=== PATIENT | female | born 1945 | race Caucasian/White ===

== ENCOUNTER 2017-01-13 09:07 | Inpatient (IN) | payer BC, OTHER ==
[~2017-01-13] VITALS: Ht 162.6 cm; Wt 58.8 kg
[2017-01-13] MEDS ORDERED: ONDANSETRON 4 MG INJ IV STA (09:51)
[2017-01-13] MEDS ORDERED: BELLADONNA/PHENOBARBITAL TAB PO STA (09:51)
[2017-01-13] MEDS ORDERED: LIDOCAINE/MYLANTA 40 ML BTL PO STA (09:51)
[2017-01-13] MEDS ORDERED: SOD CHLORIDE 0.9% 1,000 ML IV STA (09:51)
[2017-01-13] MEDS ORDERED: morphine 4 MG/ML VIAL IV STA (09:51)
[2017-01-13] MEDS ORDERED: RALO60TA12 PO (09:59)
[2017-01-13 10:30] LABS: BASOPHILS % 0.1 % (0.0-2.0); HEMATOCRIT 42.6 % (37.0-47.0); HEMOGLOBIN 14.2 g/dl (12.0-16.0); LYMPHOCYTES # 0.7 10^3/ul (0.8-2.9); LYMPHOCYTES % 5.9 % (15.0-51.0); MEAN CORPUSCULAR HEMOGLOBIN 30.7 pg (29.0-33.0); MEAN CORPUSCULAR HGB CONC 33.3 g/dl (32.0-37.0); MEAN PLATELET VOLUME 9.7 fl (7.4-10.4); MONOCYTE # 0.6 10^3/ul (0.3-0.9); MONOCYTES % 4.5 % (0.0-11.0); NEUTROPHIL # 10.9 10^3/ul (1.6-7.5); NEUTROPHILS % 89.3 % (39.0-77.0); PLATELET COUNT 153 10^3/UL (140-415); RED BLOOD COUNT 4.63 10^6/ul (4.20-5.40); RED CELL DISTRIBUTION WIDTH 12.5 % (11.5-14.5); WHITE BLOOD COUNT 12.2 10^3/ul (4.8-10.8)
[2017-01-13 10:36] LABS: ADD UMIC YES; UR ASCORBIC ACID NEGATIVE (NEGATIVE); UR BILIRUBIN (Dip) NEGATIVE (NEGATIVE); UR BLOOD (Dip) 2+ mg/dL (NEGATIVE); UR CLARITY CLEAR (CLEAR); UR COLOR YELLOW (YELLOW); UR GLUCOSE (Dip) NEGATIVE (NEGATIVE); UR KETONES (Dip) 1+ mg/dL (NEGATIVE); UR LEUKOCYTE ESTERASE (Dip) TRACE Leu/ul (NEGATIVE); UR MUCUS MANY /HPF (NONE SEEN); UR NITRITE (Dip) NEGATIVE (NEGATIVE); UR RBC 16 /HPF (0-5); UR SPECIFIC GRAVITY (Dip) 1.026 (1.003-1.030); UR TOTAL PROTEIN (Dip) 1+ mg/dl (NEGATIVE); UR UROBILINOGEN (Dip) 1+ mg/dL (NEGATIVE)
--- NOTE | 2017-01-13 10:51 | RADRPT ---
PROCEDURE: Right Upper Quadrant Ultrasound. CLINICAL INDICATION: Abdominal Pain TECHNIQUE: Multiple real-time images were acquired of the patient's right upper quadrant abdomen a nd retroperitoneum utilizing a high resolution transducer. COMPARISON: None FINDINGS: The liver measures 13.2 cm, and demonstrates increased echogenicity. The main portal vein is patent with proper directional flow. There is no intrahepatic biliary ductal dilatation. The extrahepatic c ommon bile duct measures 6 mm. There is cholelithiasis. There is mild nonspecific gallbladder wall thickening to 4 mm. There is no pericholecystic fluid. The visualized pancreas is unremarkable. The right kidney measures 10.9 cm and demonstrates normal echotexture. There is no right renal calcu hannah or hydronephrosis. The visualized abdominal aorta and IVC are grossly unremarkable. IMPRESSION: Cholelithiasis as well as gallbladder wall thickening and edema to 4 mm suggestive of acute cholecys titis in the appropriate clinical setting. The CBD is within normal limits and 6 mm. Mild to moderate fatty infiltration of the liver. RPTAT: EE Physician Jun Date Time Electronically viewed and signed by Physician Jun on 01/13/2017 10:51 /
[2017-01-13 11:05] LABS: INR 0.89; PT RATIO 0.9
[2017-01-13 11:08] LABS: ALANINE AMINOTRANSFERASE 65 IU/L (13-69); ALBUMIN/GLOBULIN RATIO 1.61; ALKALINE PHOSPHATASE 107 IU/L (42-121); ANION GAP 19 (8-16); BILIRUBIN,INDIRECT 0.7 mg/dl (0-1.1); BILIRUBIN,TOTAL 0.7 mg/dl (0.2-1.3); BLOOD UREA NITROGEN 10 mg/dl (7-20); CARBON DIOXIDE 28 mmol/L (21-31); CHLORIDE 100 mmol/L (97-110); CREATININE 0.53 mg/dl (0.44-1.00); GLUCOSE 152 mg/dl (70-220); SODIUM 143 mmol/L (135-144); TOTAL PROTEIN 8.1 g/dl (6.1-8.1)
[2017-01-13 11:12] LABS: ASPARTATE AMINO TRANSFERASE 54 IU/L (15-46)
[2017-01-13 11:21] LABS: TROPONIN-I < 0.012 ng/ml (0.00-0.12)
--- NOTE | 2017-01-13 11:53 | RADRPT ---
PROCEDURE: XR Chest. CLINICAL INDICATION: Abdominal pain. TECHNIQUE: Single frontal view. COMPARISON: None. FINDINGS: The lungs are clear. The heart size is normal. There is calcification in the aorta consistent with atherosclerosis. There is no pleural effusion. There is no pneumothorax. IMPRESSION: 1. Atherosclerosis. 2. Otherwise unremarkable chest radiograph. RPTAT: QQ .Luis M Wilder MD, MD Date Time Electronically viewed and signed by .Luis M Wilder MD, MD on 01/13/2017 11:53 .R/
--- NOTE | 2017-01-13 12:58 | ERD ---
ER Documentation Chief Complaint Chief Complaint ruq pain w n/v/d HPI 8-year-old woman brought in by family member for constant right upper quadrant abdominal pain beginning last night. She has had nausea since last night with a couple episodes of clear nonbloody nonbilious emesis as well as watery stools. She has had no fevers or chills, no chest pain or shortness of breath, no headache or blurry vision. ROS All systems reviewed and are negative except as per history of present illness. Medications Home Meds Reported Medications Raloxifene Hcl* (Evista*) 60 Mg Tablet, 60 MG PO DAILY, TAB 01/13/17 Allergies Allergies: Coded Allergies: No Known Allergy (Unverified , 01/13/17) PMhx/Soc None Medical and Surgical Hx: pt denies Medical Hx, pt denies Surgical Hx History of Surgery: No Anesthesia Reaction: No Hx Neurological Disorder: No Hx Respiratory Disorders: No Hx Cardiac Disorders: No Hx Psychiatric Problems: No Hx Miscellaneous Medical Probl: No Hx Alcohol Use: No Hx Substance Use: No Hx Tobacco Use: No Smoking Status: Never smoker FmHx Family History: No diabetes Physical Exam Vitals Vital Signs Date Time Temp Pulse Resp B/P Pulse Ox O2 Delivery O2 Flow Rate FiO2 01/13/17 12:35 84 18 133/70 96 Room Air 01/13/17 09:12 98.8 80 20 134/70 98 Physical Exam GENERAL: Well-developed, well-nourished, well-hydrated, in no apparent distress , looks nontoxic in appearance HEENT: Moist mucous membranes, pink conjunctiva, no cervical spine tenderness or step-off deformities, no goiter, no jaundice or icterus, extraocular movements intact without pain. No submandibular induration, and no pharyngeal erythema NEURO: Alert and oriented 3, cranial nerves II through XII intact bilaterally, pupils equal round reactive to light, no focal deficits or facial asymmetry, sensation intact distally Strength 5/5 in upper and lower extremities bilaterally CARDIAC: Regular rate and rhythm, no murmurs rubs or gallops LUNGS: Clear bilaterally no wheezing crackles or stridor ABDOMEN: Positive Nuno sign, no rebound, no rigidity, voluntary guarding SKIN: Warm and dry to touch, no abrasions, contusions, or hematomas, no lacerations, no ecchymosis, no target lesions, and without ulcers EXTREMITIES: No clubbing cyanosis or edema, calves are bilaterally symmetrical, no Homans sign, no popliteal cord sign. Distal pulses equal and bilateral PSYCH: Normal affect without agitation or irritability Result Diagram: 01/13/17 1020 01/13/17 1020 Results 24 hrs Laboratory Tests Test 01/13/17 09:51 01/13/17 10:20 Prothrombin Time 12.0Sec Prothrombin Time Ratio 0.9 INR International Normalized Ratio 0.89 White Blood Count 12.210^3/ul Red Blood Count 4.6310^6/ul Hemoglobin 14.2g/dl Hematocrit 42.6% Mean Corpuscular Volume 92.0fl Mean Corpuscular Hemoglobin 30.7pg Mean Corpuscular Hemoglobin Concent 33.3g/dl Red Cell Distribution Width 12.5% Platelet Count 66438^3/UL Mean Platelet Volume 9.7fl Neutrophils % 89.3% Lymphocytes % 5.9% Monocytes % 4.5% Eosinophils % 0.0% Basophils % 0.1% Nucleated Red Blood Cells % 0.0/100WBC Neutrophils # 10.910^3/ul Lymphocytes # 0.710^3/ul Monocytes # 0.610^3/ul Eosinophils # 0.010^3/ul Basophils # 0.010^3/ul Nucleated Red Blood Cells # 0.010^3/ul Urine Color YELLOW Urine Clarity CLEAR Urine pH 5.0 Urine Specific [place] 1.026 Urine Ketones 1+mg/dL Urine Nitrite NEGATIVEmg/dL Urine Bilirubin NEGATIVEmg/dL Urine Urobilinogen 1+mg/dL Urine Leukocyte Esterase TRACELeu/ul Urine Microscopic RBC 16/HPF Urine Microscopic WBC 6/HPF Urine Mucus MANY/HPF Urine Hemoglobin 2+mg/dL Urine Glucose NEGATIVEmg/dL Urine Total Protein 1+mg/dl Sodium Level 143mmol/L Potassium Level 4.0mmol/L Chloride Level 100mmol/L Carbon Dioxide Level 28mmol/L Anion Gap 19 Blood Urea Nitrogen 10mg/dl Creatinine 0.53mg/dl Glucose Level 152mg/dl Calcium Level 10.0mg/dl Total Bilirubin 0.7mg/dl Direct Bilirubin 0.00mg/dl Indirect Bilirubin 0.7mg/dl Aspartate Amino Transf (AST/SGOT) 54IU/L Alanine Aminotransferase (ALT/SGPT) 65IU/L Alkaline Phosphatase 107IU/L Troponin I < 0.012ng/ml Total Protein 8.1g/dl Albumin 5.0g/dl Globulin 3.10g/dl Albumin/Globulin Ratio 1.61 Lipase 71U/L Current Medications Medications (Trade) Dose Ordered Sig/Jaye Route PRN Reason Start Time Stop Time Status Last Admin Dose Admin Sodium Chloride (NS) 1,000 ml @ 1,000 mls/hr Q1H STAT IV 01/13/17 09:51 01/13/17 10:50 DC 01/13/17 10:03 Morphine Sulfate (morphine) 4 mg ONCE STAT IV 01/13/17 09:51 01/13/17 09:52 DC Ondansetron HCl (Zofran Inj) 4 mg ONCE STAT IV 01/13/17 09:51 01/13/17 09:52 DC 01/13/17 10:03 Miscellaneous Medication (Gi Cocktail (2)) 40 ml ONCE STAT PO 01/13/17 09:51 01/13/17 09:52 DC 01/13/17 09:51 Belladonna/ Phenobarbital () 2 tab ONCE STAT PO 01/13/17 09:51 01/13/17 09:52 DC 01/13/17 09:51 Procedures/MDM IV line was established patient was placed on front desk monitor rhythm strip revealed a sinus rhythm at about 80 bpm with upright P and T waves. Patient was afebrile EKG performed, read by me: 80 bpm, normal sinus rhythm, normal axis, no acute ST segment changes, narrow QRS complex, with good R-wave progression in precordial leads. I administered 1 L normal saline intravenously, morphine 4 mg IV, Zofran 4 mg IV , GI cocktail 30 cc p.o. with improvement in pain. CBC and electrolytes are normal, liver function tests were normal, troponin was negative. Urine analysis was equivocal but she has no genitourinary symptoms, antibiotics deferred for the time being. Ultrasound revealed gallbladder wall thickening concerning for acute cholecystitis, CBD within normal limits. Please refer to radiologist dictation for full report. Patient will be admitted to [facility] for continued medical management and surgical consultation. I spoke to Dr. Garber surgeon communication consultant regarding the patient's presentation, symptomatology, ultrasound findings. Departure Diagnosis: Primary Impression: Acute cholecystitis Condition: ISABELLA Andersen MD Jan 13, 2017 12:58
[2017-01-13] MEDS ORDERED: ACETAMINOPHEN 650 MG SUPP PR PRN (13:30)
[2017-01-13] MEDS ORDERED: MAGNESIUM HYDROXIDE 30ML CUP PO PRN (13:30)
[2017-01-13] MEDS ORDERED: ACETAMINOPHEN 325 MG TAB PO PRN (13:30)
[2017-01-13] MEDS ORDERED: ONDANSETRON 4 MG INJ IV PRN (13:30)
[2017-01-13] MEDS ORDERED: morphine 2 MG INJ IV PRN (13:30)
[2017-01-13] MEDS ORDERED: NACL 0.9% 3 ML SYG IV SCH (13:30)
[2017-01-13] MEDS ORDERED: HYDROCODONE/APAP (5/325) TAB PO PRN ×2 (13:30)
[2017-01-13] MEDS ORDERED: BISACODYL 10 MG SUPP PR PRN (13:30)
[2017-01-13] MEDS ORDERED: DOCUSATE SODIUM 100 MG CAP PO PRN (13:30)
[2017-01-13 14:06] VITALS: TEMP 99
--- NOTE | 2017-01-13 14:13 | HP ---
Date/Time of Note Date/Time of Note DATE: 01/13/17 TIME: 14:09 Assessment/Plan VTE Prophylaxis VTE Prophylaxis Intervention: SCD's Assessment/Plan Chief Complaint/Hosp Course Assessment and plan 1. Cholelithiasis with cholecystitis. Surgeon consulted. Continuing IV hydration. N.p.o. for now. Provide with analgesics as needed. 2. Leukocytosis likely secondary reactive to #1. Afebrile at present. Will monitor for now. Provide with anti-diuretics as needed. 3. Reported history of diabetes. Follow-up on A1c. Will provide insulin as needed. Admission process time greater than 40 minutes Discussed plan of care with Dr. Flores Problems: HPI/ROS Admit Date/Time Admit Date/Time Hx of Present Illness This Is a 71-year-old female with no reported past medical history who came to [facility] due to reports of abdominal pain. According to the patient she had been having abdominal pain for 2 weeks duration. She reports it was intermittent 1 right upper abdominal quadrant. She did have some nausea vomiting associated with it. She reports that 3 days prior to this admission she started to have associated diarrhea and her pain progressively got worse. As such she went to [facility] for further evaluation. Upon examination she did have gallbladder ultrasound done that did show findings consistent with cholelithiasis as well as cholecystitis. On blood work she did have leukocytosis 12.2 on white blood cell count. BMP was otherwise unremarkable. Afebrile at present. We will evaluate her for the aformentiond issues. ROS 12 point review of systems obtained and entirely negative except as mentioned in the history of present illness PMH/Family/Social Past Medical History Medical History: no pertinent history Family History Significant Family History: no pertinent family hx Social History Alcohol Use: none Smoking Status: Never smoker Drug Use: none Exam/Review of Systems Vital Signs Vitals Vital Signs Date Time Temp Pulse Resp B/P Pulse Ox O2 Delivery O2 Flow Rate FiO2 01/13/17 14:06 99.0 01/13/17 12:35 84 18 133/70 96 Room Air Exam Constitutional: alert, oriented Psych: nl mood/affect Head: normocephalic Eyes: nl conjunctiva Respiratory: clear to auscultation, normal air movement Cardiovascular: regular rate and rhythm Gastrointestinal: non-tender, soft Musculoskeletal: nl extremities to inspection Neurological: [employer]ER II-XII intact, nl mental status, nl speech Labs Result Diagram: 01/13/17 1020 01/13/17 1020 Medications Medications Current Medications Sodium Chloride (NS) 1,000 ml @ 80 mls/hr [id number] IV ; Start 01/13/17 at 13:21 Ondansetron HCl (Zofran Inj) 4 mg Q6H PRN IV NAUSEA AND/OR VOMITING; Start 01/13/17 at 13:30 Acetaminophen (Tylenol Tab) 650 mg Q6H PRN PO PAIN LEVEL 1-3 OR FEVER; Start 01/13/17 at 13:30 Acetaminophen (Tylenol Supp) 650 mg Q6H PRN [place] PAIN LEVEL 1-3 OR FEVER; Start 01/13/17 at 13:30 Acetaminophen/ Hydrocodone Bitart ([place] (5/325)) 1 tab Q6H PRN PO MODERATE PAIN LEVEL 4-6; Start 01/13/17 at 13:30 Acetaminophen/ Hydrocodone Bitart ([place] (5/325)) 2 tab Q6H PRN PO SEVERE PAIN LEVEL 7-10; Start 01/13/17 at 13:30 Morphine Sulfate (morphine) 2 mg Q4H PRN IV SEVERE PAIN LEVEL 7-10; Start 01/13 at 13:30 Docusate Sodium (Colace) 100 mg Q12H PRN PO CONSTIPATION; Start 01/13/17 at 13: 30 Magnesium Hydroxide (Milk Of Mag) 30 ml DAILY PRN PO CONSTIPATION; Start at 13:30 Bisacodyl (Dulcolax Supp) 10 mg DAILY PRN [place] CONSTIPATION; Start 01/13/17 at 13 :30 Pantoprazole (Protonix Iv) 40 mg DAILY@06 IV ; Start 01/14/17 at 06:00 SHOSHANA YAÑEZ Jan 13, 2017 14:13
[2017-01-13] MEDS ORDERED: GLIP5TAB13 PO (14:36)
[2017-01-13 15:17] VITALS: Ht 162.6 cm; Wt 58.8 kg
[2017-01-13 15:21] VITALS: BP 131/61; RESP 18
--- NOTE | 2017-01-13 17:44 | CONS ---
Date/Time of Note Date/Time of Note DATE: 01/13/17 TIME: 14:44 Assessment/Plan Assessment/Plan Additional Assessment/Plan [facility] INPATIENT CONSULTATION NOTE DATE OF SERVICE: 01/13/2017 PLACE OF SERVICE: [facility], emergency department ASSESSMENT AND PLAN: A very-pleasant 71-year-old lady seemingly otherwise healthy who presented to the emergency department to [facility] with abdominal pain which could be due to symptomatic biliary colic. The appearance of the ultrasound suggests lack of significant inflammation of the gallbladder, but there is distention as well as significant amount of cholelithiasis. Her physical exam and her history do agree with likely gallbladder etiology behind her pain. I recommended extra workup in the form of HIDA scan prior to exposing the patient to the risk of surgery. If the HIDA scan is positive, the patient can certainly benefit from laparoscopic, possible open cholecystectomy. I plan on consenting the patient after this result is available. Explained to the patient (no family present) and answered all questions. Patient appeared to understand and agreed with plans. With above assessment, I've recommended the followin. Agree with admission to the hospital 2. HIDA scan 3. Laparoscopic cholecystectomy after above if HIDA scan is definitive Thank you very much for having me involved in the care of this very pleasant patient and wonderful family. If you have any questions, please feel free to contact me at [phone]. Nature of presenting problem: Moderate severity Please note that, given the limited number of diagnoses or management options, the moderate amount and/or complexity of data needed to be reviewed, and moderate risk of complications and/or morbidity or mortality, this qualifies as moderate complexity type of decision-making. Disclaimers: 1. Inadvertent spelling and grammatical errors are likely due to electronic health record (EHR)/dictation software used and do not reflect on the quality of delivered patient care. 2. The electronic timestamp recorded on this note does not necessarily reflect the actual date and time of the visit or the service. 3. Portions of this note may have been created through electronic templates and computer algorithms that might bring in information either from the system or from other physicians and providers. Please note that such information may or may not contain errors, the occurrence of which are outside of my control. In general (but not always) this happens either in the beginning or at the end of the note. The portion of the note that I have created are generally done in 1 continuous block of text, flanked at the beginning and at the end by " ", and entered into one field in the EHR. 4. There may be other unanticipated errors in the note that are outside of my control. I can only attest to the portions of the note that I have created. Updated clinical summary: A very-pleasant 71-year-old lady seemingly otherwise healthy who presented to the emergency department to [facility] with abdominal pain which could be due to symptomatic biliary colic. Comorbidities: 1. No known significant prior medical history CONSULTATION REQUESTED BY: Leo Augustin MD Dear Dr. Augustin, Thank you very much for the opportunity to participate in the care of this very pleasant lady and her wonderful family. HISTORY OF PRESENT ILLNESS: The patient is a very pleasant 71-year-old lady with no significant or known past medical history of comorbidity who presented to [facility] emergency department with abdominal pain which she describes as 2 weeks in duration and mainly in the right upper and mid abdominal quadrants. She does have nausea and a few episodes of nonbloody vomiting. There was also diarrhea associated with this for the last 3 days which progressively has gotten worse. Patient's workup included a right upper quadrant ultrasound demonstrated cholelithiasis and possible evidence for cholecystitis. White blood cell count was 12.2. At my visit, the patient did not have any other pertinent history or complaints. No prior abdominal operations. No prior issues with her biliary system and no prior pancreatitis in the past. Appetite has been fairly normal and no significant change in her weight. ALLERGIES: NO KNOWN DRUG ALLERGIES MEDICATIONS Documented in the electronic records and reviewed by me. Please see the electronic records for details, as well as details for inpatient medications which were also reviewed by me. SOCIAL HISTORY: The patient lives with family.-Tob;-ETOH;-IVDU FAMILY HISTORY: There are no significant medical, surgical or oncologic issues in the family as reported by the patient or reflected in the chart. REVIEW OF SYSTEMS: Other than mentioned above, there were no other pertinent positives or pertinent negatives in an otherwise complete 14 point review of systems. PHYSICAL EXAMINATION GENERAL: The patient appears to be a very pleasant lady of descent lying in bed, appearing stated age, and otherwise in no acute distress. BMI: 22.3 VITAL SIGNS: AVSS (please also see auto important data if available as well as the electronic records) HEENT: Normocephalic and atraumatic. Extraocular muscles and hearing are grossly intact bilaterally and symmetrically. Sclerae are nonicteric. Oral cavity is clear; oral mucosa appear to be pink and moist. Dentition: fair. NECK: Supple. There is no lymphadenopathy or JVD. There is no submental, submandibular or supraclavicular lymphadenopathy. CHEST: Rises symmetrically with each breath; patient is breathing comfortably. There are no audible wheezes, rales or rhonchi on the gross exam. HEART: Pulse is regular and palpable on the right wrist. Capillary refill is normal. Carotid pulses are palpable bilaterally and symmetrically in the neck. EXTREMITIES: Lower extremities contain no pitting edema around the ankles bilaterally and symmetrically. ABDOMEN: Abdomen is soft, minimally tender to palpation in the right upper quadrant and nondistended. No evidence of ascites, organomegaly, caput medusae , engorged subcutaneous veins, or other abnormalities. There are no peritoneal signs or guarding. SKIN: Appears to be pink and feels warm to touch. NEUROLOGIC: Awake, alert, and follows commands appropriately. LABORATORY DATA: See below IMAGING: See electronic chart. Please note that I've personally reviewed all pertinent available images and I agree in general with their overall reported findings. Consultation Date/Type/Reason Admit Date/Time Psychological: nl mood/affect Past Medical History Medical History: no pertinent history Social History Alcohol Use: none Smoking Status: Never smoker Drug Use: none Exam/Review of Systems Vital Signs Vitals Vital Signs Date Time Temp Pulse Resp B/P Pulse Ox O2 Delivery O2 Flow Rate FiO2 01/13/17 15:21 98.4 78 18 131/61 99 01/13/17 12:35 Room Air Results Result Diagram: 01/13/17 1020 01/13/17 1020 Results 24 hrs Laboratory Tests Test 01/13/17 09:51 01/13/17 10:20 Prothrombin Time 12.0 L Prothrombin Time Ratio 0.9 INR International Normalized Ratio 0.89 White Blood Count 12.2 H Red Blood Count 4.63 Hemoglobin 14.2 Hematocrit 42.6 Mean Corpuscular Volume 92.0 Mean Corpuscular Hemoglobin 30.7 Mean Corpuscular Hemoglobin Concent 33.3 Red Cell Distribution Width 12.5 Platelet Count 153 Mean Platelet Volume 9.7 Neutrophils % 89.3 H Lymphocytes % 5.9 L Monocytes % 4.5 Eosinophils % 0.0 Basophils % 0.1 Nucleated Red Blood Cells % 0.0 Neutrophils # 10.9 H Lymphocytes # 0.7 L Monocytes # 0.6 Eosinophils # 0.0 Basophils # 0.0 Nucleated Red Blood Cells # 0.0 Urine Color YELLOW Urine Clarity CLEAR Urine pH 5.0 Urine Specific [place] 1.026 Urine Ketones 1+ H Urine Nitrite NEGATIVE Urine Bilirubin NEGATIVE Urine Urobilinogen 1+ H Urine Leukocyte Esterase TRACE A Urine Microscopic RBC 16 H Urine Microscopic WBC 6 H Urine Mucus MANY A Urine Hemoglobin 2+ H Urine Glucose NEGATIVE Urine Total Protein 1+ H Sodium Level 143 Potassium Level 4.0 Chloride Level 100 Carbon Dioxide Level 28 Anion Gap 19 H Blood Urea Nitrogen 10 Creatinine 0.53 Glucose Level 152 Calcium Level 10.0 Total Bilirubin 0.7 Direct Bilirubin 0.00 Indirect Bilirubin 0.7 Aspartate Amino Transf (AST/SGOT) 54 H Alanine Aminotransferase (ALT/SGPT) 65 Alkaline Phosphatase 107 Troponin I < 0.012 Total Protein 8.1 Albumin 5.0 H Globulin 3.10 Albumin/Globulin Ratio 1.61 Lipase 71 Medications Medications Current Medications Sodium Chloride (NS) 1,000 ml @ 80 mls/hr [id number] IV ; Start 01/13/17 at 13:21 Ondansetron HCl (Zofran Inj) 4 mg Q6H PRN IV NAUSEA AND/OR VOMITING; Start 01/13/17 at 13:30 Acetaminophen (Tylenol Tab) 650 mg Q6H PRN PO PAIN LEVEL 1-3 OR FEVER; Start 01/13/17 at 13:30 Acetaminophen (Tylenol Supp) 650 mg Q6H PRN [place] PAIN LEVEL 1-3 OR FEVER; Start 01/13/17 at 13:30 Acetaminophen/ Hydrocodone Bitart ([place] (5/325)) 1 tab Q6H PRN PO MODERATE PAIN LEVEL 4-6; Start 01/13/17 at 13:30 Acetaminophen/ Hydrocodone Bitart ([place] (5/325)) 2 tab Q6H PRN PO SEVERE PAIN LEVEL 7-10; Start 01/13/17 at 13:30 Morphine Sulfate (morphine) 2 mg Q4H PRN IV SEVERE PAIN LEVEL 7-10; Start 01/13 at 13:30 Docusate Sodium (Colace) 100 mg Q12H PRN PO CONSTIPATION; Start 01/13/17 at 13: 30 Magnesium Hydroxide (Milk Of Mag) 30 ml DAILY PRN PO CONSTIPATION; Start at 13:30 Bisacodyl (Dulcolax Supp) 10 mg DAILY PRN [place] CONSTIPATION; Start 01/13/17 at 13 :30 Pantoprazole (Protonix Iv) 40 mg DAILY@06 IV ; Start 01/14/17 at 06:00 Influenza Virus Vaccine (Fluzone) 0.5 ml ONCE ONCE IM* ; Start 01/14/17 at 09:00 ; Stop 01/14/17 at 09:01 ALEXIS HINES M.D. Jan 13, 2017 17:44
[2017-01-13] MEDS: SOD CHLORIDE 0.9% 1,000 ML IV SCH (17:49)
[2017-01-13 20:00] VITALS: BP 114/57; RESP 18
[2017-01-14] VITALS (15 sets, daily range): BP systolic 92–129; BP diastolic 46–63; PULSE 66–99; RESP 14–22
[2017-01-14] MEDS: SOD CHLORIDE 0.9% 1,000 ML IV SCH (02:15)
[2017-01-14 05:52] LABS: BASOPHILS % 0.2 % (0.0-2.0); EOSINOPHILS % 0.1 % (0.0-7.0); HEMATOCRIT 37.8 % (37.0-47.0); HEMOGLOBIN 12.3 g/dl (12.0-16.0); LYMPHOCYTES # 1.2 10^3/ul (0.8-2.9); LYMPHOCYTES % 10.4 % (15.0-51.0); MEAN CORPUSCULAR HEMOGLOBIN 29.9 pg (29.0-33.0); MEAN CORPUSCULAR HGB CONC 32.5 g/dl (32.0-37.0); MEAN CORPUSCULAR VOLUME 91.7 fl (82.0-101.0); MEAN PLATELET VOLUME 9.7 fl (7.4-10.4); MONOCYTE # 0.7 10^3/ul (0.3-0.9); MONOCYTES % 5.9 % (0.0-11.0); NEUTROPHIL # 9.3 10^3/ul (1.6-7.5); PLATELET COUNT 138 10^3/UL (140-415); RED BLOOD COUNT 4.12 10^6/ul (4.20-5.40); WHITE BLOOD COUNT 11.2 10^3/ul (4.8-10.8)
[2017-01-14] MEDS ORDERED: PANTOPRAZOLE 40 MG INJ IV SCH (06:00)
[2017-01-14 06:36] LABS: ALBUMIN 3.1 g/dl (3.3-4.9); ALBUMIN/GLOBULIN RATIO 1.19; BILIRUBIN,INDIRECT 0.8 mg/dl (0-1.1); BILIRUBIN,TOTAL 0.8 mg/dl (0.2-1.3); CALCIUM 9.2 mg/dl (8.4-10.2); CHOL/HDL RATIO 2.2 RATIO; CREATININE 0.57 mg/dl (0.44-1.00); PHOSPHORUS 2.2 mg/dl (2.5-4.9); POTASSIUM 4.1 mmol/L (3.5-5.1); TOTAL PROTEIN 5.7 g/dl (6.1-8.1)
[2017-01-14 06:51] LABS: T3 UPTAKE 32.9 % (23.5-40.5)
[2017-01-14] MEDS ORDERED: MEPERIDINE 25 MG INJ IV PRN (07:00)
[2017-01-14] MEDS ORDERED: EPHEDrine SULFATE 50 MG/5 ML SYG IV PRN (07:00)
[2017-01-14] MEDS ORDERED: morphine (1 MG/ML) 10ML SYRINGE IV PRN ×3 (07:00)
[2017-01-14] MEDS ORDERED: hydrALAzine 20 MG INJ IV PRN (07:00)
[2017-01-14] MEDS ORDERED: MIDAZOLAM 1 MG/ML 2 ML INJ IV PRN (07:00)
[2017-01-14] MEDS ORDERED: LABETALOL HCL 20MG INJ IV PRN (07:00)
[2017-01-14] MEDS ORDERED: SUCCINYLCHOLINE CHLORIDE 100 MG/5 ML SYG IV ONE (07:00)
[2017-01-14] MEDS ORDERED: DIPHENHYDRAMINE 50 MG INJ IV PRN (07:00)
[2017-01-14] MEDS ORDERED: ONDANSETRON 4 MG INJ IV PRN (07:00)
[2017-01-14] MEDS ORDERED: FENTAnyl 50 MCG/ML VIAL IV PRN ×2 (07:00)
[2017-01-14] MEDS ORDERED: OXYCODONE/ACETAMINOPHEN (5/325) TAB PO PRN ×2 (07:00)
[2017-01-14] MEDS ORDERED: CEFAZOLIN 1 GM INJ ONE (07:00)
[2017-01-14] MEDS ORDERED: HYDROmorphONE (0.2 MG/ML) 10ML SYG IV PRN ×3 (07:00)
[2017-01-14] MEDS ORDERED: ATROPINE 1 MG/10 ML SYRINGE IV PRN (07:00)
[2017-01-14 07:06] LABS: THYROID STIMULATING HORMONE 0.467 MIU/L (0.465-4.680)
[2017-01-14] MEDS ORDERED: INFLUENZA VIRUS VACCINE 0.5 ML SYG IM* ONE (09:00)
[2017-01-14] MEDS ORDERED: BUPIVACAINE 0.5%/EPI (SDV) 30 ML INJ ONE (09:00)
[2017-01-14] MEDS ORDERED: NEOSTIGMINE 3 MG/3 ML SYRINGE ONE (10:46)
[2017-01-14] MEDS ORDERED: FENTAnyl 50 MCG/ML VIAL ONE (10:46)
[2017-01-14] MEDS ORDERED: MIDAZOLAM 1 MG/ML 2 ML INJ ONE (10:46)
[2017-01-14] MEDS ORDERED: ROCURONIUM 50 MG INJ ONE (10:46)
[2017-01-14] MEDS ORDERED: LIDOCAINE 2% (SDV) 5 ML INJ ONE (10:46)
[2017-01-14] MEDS ORDERED: ONDANSETRON 4 MG INJ ONE (10:46)
[2017-01-14] MEDS ORDERED: PROPOFOL 20 ML ONE (10:46)
[2017-01-14] MEDS ORDERED: GLYCOPYRROLATE 0.4 MG INJ ONE (10:46)
[2017-01-14] MEDS ORDERED: DEXAMETHASONE 4 MG/ML 1 ML INJ ONE (10:47)
[2017-01-14] MEDS ORDERED: BUPIVACAINE 0.25% (MPF) 30 ML INJ ONE (11:04)
--- NOTE | 2017-01-14 11:06 | HPN ---
Date/Time of Note Date/Time of Note DATE: 01/14/17 TIME: 11:06 Interval H&P Admission Note Pt. seen H&P reviewed: No system changes Pt. seen H&P reviewed. No system changes (I attest that I have seen and examined the patient and reviewed the operation in detail, as well as its risks , benefits and alternatives of the operation). I attest that I have seen and examined the patient and reviewed in detail the operation, and its associated risks, benefits and alternative. I have answered all the patient's questions to the best of my ability and the patient wishes to proceed. Please refer to rest of electronic medical record for additional updates. ALEXIS IHNES M.D. Jan 14, 2017 11:06
--- NOTE | 2017-01-14 11:12 | PN ---
Date/Time of Note Date/Time of Note DATE: 01/14/17 TIME: 11:07 Assessment/Plan VTE Prophylaxis VTE Prophylaxis Intervention: SCD's Lines/Catheters IV Catheter Type (from [facility]): Peripheral IV Assessment/Plan Chief Complaint/Hosp Course Assessment and plan 1. Cholelithiasis with cholecystitis. Surgeon consulted. Continuing IV hydration. N.p.o. for now. Provide with analgesics as needed. plan for lap- cholecystectomy 2. Leukocytosis likely secondary reactive to #1. Afebrile at present. Will monitor for now. Provide with anti-pyretics as needed. 3. Reported history of diabetes. a1c: 6. monitor glucose levels for now DISPO/PLAN: plan for lap-cholecystectomy. will follow post-op Discussed plan of care with Dr. Flores Problems: Subjective 24 Hr Interval Summary Free Text/Dictation patient for surgical intervention Exam/Review of Systems Vital Signs Vitals Vital Signs Date Time Temp Pulse Resp B/P Pulse Ox O2 Delivery O2 Flow Rate FiO2 01/14/17 08:27 99.4 89 18 129/53 98 01/13/17 12:35 Room Air Intake and Output 01/13/17 01/13/17 01/14/17 14:59 22:59 06:59 Intake Total 0 ml 1300 ml Balance 0 ml 1300 ml Exam patient for surgical intervention Results Result Diagram: 01/14/17 0523 01/14/17 0523 Results 24 hrs Laboratory Tests Test 01/14/17 05:23 White Blood Count 11.2 H Red Blood Count 4.12 L Hemoglobin 12.3 Hematocrit 37.8 Mean Corpuscular Volume 91.7 Mean Corpuscular Hemoglobin 29.9 Mean Corpuscular Hemoglobin Concent 32.5 Red Cell Distribution Width 13.0 Platelet Count 138 L Mean Platelet Volume 9.7 Neutrophils % 83.0 H Lymphocytes % 10.4 L Monocytes % 5.9 Eosinophils % 0.1 Basophils % 0.2 Nucleated Red Blood Cells % 0.0 Neutrophils # 9.3 H Lymphocytes # 1.2 Monocytes # 0.7 Eosinophils # 0.0 Basophils # 0.0 Nucleated Red Blood Cells # 0.0 Sodium Level 140 Potassium Level 4.1 Chloride Level 108 Carbon Dioxide Level 26 Anion Gap 10 # Blood Urea Nitrogen 8 Creatinine 0.57 Glucose Level 119 Hemoglobin A1c 6.0 H Calcium Level 9.2 Phosphorus Level 2.2 L Magnesium Level 2.0 Total Bilirubin 0.8 Direct Bilirubin 0.00 Indirect Bilirubin 0.8 Aspartate Amino Transf (AST/SGOT) 68 H Alanine Aminotransferase (ALT/SGPT) 99 H Alkaline Phosphatase 81 Total Protein 5.7 #L Albumin 3.1 #L Globulin 2.60 Albumin/Globulin Ratio 1.19 Triglycerides Level 53 Cholesterol Level 131 LDL Cholesterol, Calculated 62 HDL Cholesterol 58 Cholesterol/HDL Ratio 2.2 Thyroid Stimulating Hormone (TSH) 0.467 Free Thyroxine Index 2.93 Thyroxine (T4) 8.9 Triiodothyronine (T3) Uptake 32.9 Medications Medications Current Medications Sodium Chloride (NS) 1,000 ml @ 80 mls/hr [id number] IV Last administered on 01/14 02:15; Admin Dose 80 MLS/HR; Start 01/13/17 at 13:21 Ondansetron HCl (Zofran Inj) 4 mg Q6H PRN IV NAUSEA AND/OR VOMITING; Start 01/13/17 at 13:30 Acetaminophen (Tylenol Tab) 650 mg Q6H PRN PO PAIN LEVEL 1-3 OR FEVER; Start 01/13/17 at 13:30 Acetaminophen (Tylenol Supp) 650 mg Q6H PRN [place] PAIN LEVEL 1-3 OR FEVER; Start 01/13/17 at 13:30 Acetaminophen/ Hydrocodone Bitart ([place] (5/325)) 1 tab Q6H PRN PO MODERATE PAIN LEVEL 4-6; Start 01/13/17 at 13:30 Acetaminophen/ Hydrocodone Bitart ([place] (5/325)) 2 tab Q6H PRN PO SEVERE PAIN LEVEL 7-10; Start 01/13/17 at 13:30 Morphine Sulfate (morphine) 2 mg Q4H PRN IV SEVERE PAIN LEVEL 7-10; Start 01/13 at 13:30 Docusate Sodium (Colace) 100 mg Q12H PRN PO CONSTIPATION; Start 01/13/17 at 13: 30 Magnesium Hydroxide (Milk Of Mag) 30 ml DAILY PRN PO CONSTIPATION; Start at 13:30 Bisacodyl (Dulcolax Supp) 10 mg DAILY PRN [place] CONSTIPATION; Start 01/13/17 at 13 :30 Pantoprazole (Protonix Iv) 40 mg DAILY@06 IV Last administered on 01/14/17 05: 30; Admin Dose 40 MG; Start 01/14/17 at 06:00 SHOSHANA YAÑEZ Jan 14, 2017 11:12
[2017-01-14] MEDS ORDERED: LABETALOL HCL 20MG INJ ONE (12:12)
--- NOTE | 2017-01-14 13:45 | OPR ---
Date/Time of Note Date/Time of Note DATE: 01/14/17 TIME: 13:44 Operative Report Preoperative Diagnosis n Postoperative Diagnosis n Surgeon see signature line Plastics Fabricator n Anesthesia Type: other Estimated Blood Loss: other Transfusion none Specimen n Grafts/Implants none Complications none Procedure Description [facility] IN[facility]IENT [facility]PER[facility]IVE NOTE PLACE OF SERVICE: [facility] DATE OF SURGERY: 01/14/2017 PREOPERATIVE DIAGNOSIS: 1. Acute cholecystitis POSTOPERATIVE DIAGNOSIS: 1. Severe acute on chronic cholecystitis with gangrene OPERATION: 1. Laparoscopic cholecystectomy SURGEON: Alexis Hines M.D. NETWORK DESKTOP SUPPORT SPECIALIST: None ANESTHESIA: General endotracheal tube anesthesia ANESTHESIOLOGIST: Vandana Pascual M.D. BRIEF SUMMARY: An otherwise uncomplicated but somewhat challenging laparoscopic cholecystectomy was performed with findings of severe acute on chronic cholecystitis with gallbladder gangrene. Updated clinical summary: A very-pleasant 71-year-old lady seemingly otherwise healthy who presented to the emergency department to [facility] with abdominal pain which could be due to symptomatic biliary colic. Comorbidities: 1. No known significant prior medical history BRIEF HISTORY: The patient is a very pleasant 71-year-old lady seemingly otherwise healthy who presented to the emergency department to [facility] with abdominal pain which could be due to symptomatic biliary colic. We initially had planned a HIDA scan since the clinical picture was not 100% clear, but the patient continued to have right upper quadrant abdominal pain and for this reason we decided to cancel a HIDA scan and go to the operating room. I met with the patient and family (patient's daughter) and counseled them regarding the possible options of treatment, and I strongly suggested a laparoscopic, possible open cholecystectomy. We reviewed the operation in detail as well as the risks, benefits, alternatives, and expected outcomes of this operation. After careful consideration of all the risks, benefits, and alternatives, the patient and family appeared to understand those risks and wished to proceed with surgery. For a detailed report of my consultation with patient and family, please refer to my separate consultation note. STATEMENT OF THE INFORMED CONSENT: The patient and family appeared to understand the risks of the operation to include, but not be limited to risk of postoperative pain and scar tissue, possible infection or bleeding requiring other interventions such as opening the wound, placement of drainage catheters, or other operative interventions; possible injury to surrounding to structures including bowel, bladder, bile duct, or blood vessels, or solid organs such as liver, kidney, or pancreas requiring other interventions or procedures; possible leakage of bile from surgical clip sites, suture lines, or worse, from common bile duct injury, causing significant increase in morbidity and mortality and requiring multiple interventions including but not limited to, placement of drainage catheters, imaging studies, as well as operative interventions; possible other source of sepsis such as urinary tract infections or pneumonias, or other sources of potentially life threatening problems such as deep venous thrombus formation causing pulmonary embolism, myocardial arrhythmias and infarctions, and even . After careful consideration of all their options, the patient and family appeared to understand and wished to proceed with surgery. DESCRIPTION OF PROCEDURE: After obtaining informed consent, the patient was brought into the operating room and was placed in a normal supine position, where successful general endotracheal tube anesthesia was performed. The patient 's abdominal skin was prepped and draped, from the nipple line down to the level of the groins, in the usual sterile fashion. Intravenous access was already in place, and appropriately chosen and dosed prophylactic intravenous antimicrobials were administered. We then called a surgical time-out where patient's identification, date of , nature of the operation, allergies, presence of intravenous antimicrobials, presence of needed equipment, and any other concerns were reviewed and agreed upon by all members of the operating room team. We then started the operation by placing a 5-mm skin incision in the right- upper quadrant, subcostal midclavicular line, and introduced a 5-mm [employer] trocar into the peritoneal space, visualizing all the layers of the abdominal wall as we entered. Note that there was no indication of any injury to underlying structures once we entered the peritoneum. We insufflated the abdominal cavity to a maximum pressure of 15 mmHg, again, confirmed lack of any injury to underlying structures prior to visualizing the rest of the abdominal cavity. We could not see the fundus of the gallbladder and there was omental adhesions onto the underside of the right lobe of the liver. There was no evidence of malignancy. No evidence of calcifications or significant other issues with adhesions, or other abnormalities. The liver appeared to be healthy. With this information, we went a head and placed the other trocars under direct visualization, after injecting their sites with 0.25% Marcaine with epinephrine , placing a 5-mm trocar in the umbilical midline area, a 5-mm trocar in the right anterior axillary line, and a 12-mm trocar in the midline subxiphoid region. With our instruments in place, we had excellent visualization and access to the right-upper quadrant. We then we grasped the fundus of the gallbladder and pointed up towards the right-upper quadrant. There was dense omental adhesions onto the infundibulum which we took down with judicious use of cautery, as well as meticulous blunt dissection. We could immediately see that there was significant chronic inflammation in the area of the gallbladder since the omentum was very densely adherent onto the body. I spent quite a bit of time with very judicious use of blunt dissection and judicious use of cautery to maintain hemostasis to dissect through these adhesions to a point where we had taken off the omental connections to the gallbladder approximately 90% of the body of the gallbladder. There was no good way to isolate the triangle of Calot low structures initially. For this reason and to maximize the degree of safety of the operation, I decided to take the gallbladder top-down which we accomplished using very judicious use of cautery as well as blunt dissection. We did have to use 1 Ray-Madeleine during this portion of the operation to hold the liver up. We used cautery to maintain hemostasis of the gallbladder bed. We continued meticulous dissection down the infundibulum until we saw the course of the cystic duct and we made sure that we had circumferential control around this structure and that there were no other structures going into the gallbladder prior to transecting the duct between 3 surgical endoclips proximally and one distally using cold scissors. Note that the cystic artery was not present. I made the conclusion that the cystic artery had clotted off a while back since the body of the gallbladder appeared to be necrotic and gangrenous. No obvious perforation of the wall of the gallbladder was seen. Note that we did not decompress the gallbladder during the dissection. We then delivered the gallbladder inside of an EndoCatch bag out through the 12-mm trocar site without enlarging the fascia or contaminating the wound. The gallbladder and the remove stones were sent to Pathology for evaluation. Returning to the abdominal cavity, we ensured that there was adequate hemostasis and bile-stasis prior to removal of all of or equipment, including the pneumoperitoneum, and then reapproximating the 12-mm trocar site with one [id number] 0 Vicryl suture, followed by washing the wounds with copious amounts of normal saline, and then reapproximating the skin using interrupted 4- 0 Monocryl sutures. Light dressing was then applied. At the end of the operation, both the sponge count and needle count were reportedly correct x2. The patient tolerated the procedure without any reported complications. ESTIMATED BLOOD LOSS: 20 mL BLOOD OR BLOOD PRODUCT TRANSFUSIONS: None to my knowledge. SPECIMENS: 1. Gallbladder COMPLICATIONS: None. DISPOSITION: Recovery area. Disclaimers: 1. Inadvertent spelling and grammatical errors are likely due to electronic health record (EHR)/dictation software used and do not reflect on the quality of delivered patient care. 2. The electronic timestamp recorded on this note does not necessarily reflect the actual date and time of the visit or the service. 3. Portions of this note may have been created through electronic templates and computer algorithms that might bring in information either from the system or from other physicians and providers. Please note that such information may or may not contain errors, the occurrence of which are outside of my control. In general (but not always) this happens either in the beginning or at the end of the note. The portion of the note that I have created are generally done in 1 continuous block of text, flanked at the beginning and at the end by " ", and entered into one field in the EHR. 4. There may be other unanticipated errors in the note that are outside of my control. I can only attest to the portions of the note that I have created. ALEXIS HINES M.D. Jan 14, 2017 13:45
[2017-01-14] MEDS ORDERED: BISACODYL 10 MG SUPP PR PRN (14:00)
[2017-01-14] MEDS ORDERED: HYDROCODONE/APAP (5/325) TAB PO PRN ×2 (14:00)
[2017-01-14] MEDS ORDERED: HYDROmorphONE 1 MG/ML SYG IV PRN (14:00)
[2017-01-14] MEDS ORDERED: DOCUSATE SODIUM 100 MG CAP PO PRN (14:00)
[2017-01-14] MEDS ORDERED: NA PHOSPHATE/BIPHOS 133 ML ENEMA PR PRN (14:00)
[2017-01-14] MEDS: D5W-0.45 NACL + KCL 20 MEQ 1,000 ML IV SCH ×2 (15:21→23:35)
[2017-01-14] MEDS: HYDROmorphONE 0.5 MG/0.5 ML SYG IV PRN ×2 (15:42→21:08)
[2017-01-14] MEDS ORDERED: GLUCAGON 1 MG INJ IM PRN (21:30)
[2017-01-14] MEDS ORDERED: GLUCOSE GEL 15 GRAM TUBE BUCCAL PRN (21:30)
[2017-01-14] MEDS ORDERED: GLUCOSE GEL 15 GRAM TUBE PO PRN ×2 (21:30)
[2017-01-14] MEDS ORDERED: DEXTROSE 50% 50 ML SYRINGE IV PRN ×2 (21:30)
[2017-01-14] MEDS: INSULIN ASPART [NOVOLOG] 3 ML PEN SC SCH (21:32)
[2017-01-15] MEDS ORDERED: ACCU-CHEK XX SCH ×2 (02:00)
[2017-01-15] MEDS: D5W-0.45 NACL + KCL 20 MEQ 1,000 ML IV SCH (02:07)
[2017-01-15 04:00] VITALS: BP 106/51; RESP 20
[2017-01-15 07:33] VITALS: BP 116/56; RESP 16
[2017-01-15 07:38] LABS: BASOPHILS % 0.1 % (0.0-2.0); EOSINOPHILS % 0.1 % (0.0-7.0); HEMATOCRIT 33.4 % (37.0-47.0); HEMOGLOBIN 10.9 g/dl (12.0-16.0); LYMPHOCYTES # 1.2 10^3/ul (0.8-2.9); LYMPHOCYTES % 14.9 % (15.0-51.0); MEAN CORPUSCULAR HEMOGLOBIN 30.9 pg (29.0-33.0); MEAN CORPUSCULAR HGB CONC 32.6 g/dl (32.0-37.0); MEAN CORPUSCULAR VOLUME 94.6 fl (82.0-101.0); MEAN PLATELET VOLUME 10.3 fl (7.4-10.4); MONOCYTE # 0.7 10^3/ul (0.3-0.9); MONOCYTES % 8.1 % (0.0-11.0); NEUTROPHIL # 6.3 10^3/ul (1.6-7.5); NEUTROPHILS % 76.4 % (39.0-77.0); PLATELET COUNT 119 10^3/UL (140-415); RED BLOOD COUNT 3.53 10^6/ul (4.20-5.40); RED CELL DISTRIBUTION WIDTH 13.3 % (11.5-14.5); WHITE BLOOD COUNT 8.3 10^3/ul (4.8-10.8)
[2017-01-15] MEDS: HYDROmorphONE 0.5 MG/0.5 ML SYG IV PRN ×2 (07:45→12:22)
[2017-01-15 07:59] LABS: PARTIAL THROMBOPLASTIN TIME 37.5 Sec (25.0-35.0)
[2017-01-15 08:08] LABS: INR 1.26; PROTIME 15.9 Sec (12.2-14.2); PT RATIO 1.2
[2017-01-15 08:09] LABS: ALBUMIN 2.8 g/dl (3.3-4.9); ALBUMIN/GLOBULIN RATIO 1.03; BILIRUBIN,INDIRECT 0.5 mg/dl (0-1.1); BILIRUBIN,TOTAL 0.5 mg/dl (0.2-1.3); CALCIUM 8.7 mg/dl (8.4-10.2); CREATININE 0.43 mg/dl (0.44-1.00); MAGNESIUM 2.1 mg/dl (1.7-2.5); PHOSPHORUS 1.6 mg/dl (2.5-4.9); POTASSIUM 4.2 mmol/L (3.5-5.1); TOTAL PROTEIN 5.5 g/dl (6.1-8.1)
[2017-01-15] MEDS: INSULIN ASPART [NOVOLOG] 3 ML PEN SC SCH ×2 (08:31→12:23)
[2017-01-15] MEDS ORDERED: INFLUENZA VIRUS VACCINE 0.5 ML (DISPENSING) IM* ONE (09:00)
[2017-01-15] MEDS ORDERED: FAMOTIDINE 20 MG INJ IV SCH (09:00)
[2017-01-15] MEDS ORDERED: ENOXAPARIN 40 MG/0.4 ML SYG SC SCH (09:00)
--- NOTE | 2017-01-15 11:10 | PN ---
Date/Time of Note Date/Time of Note DATE: 01/15/17 TIME: 11:08 Assessment/Plan VTE Prophylaxis VTE Prophylaxis Intervention: SCD's Lines/Catheters IV Catheter Type (from Nrs): Peripheral IV Urinary Cath still in place: No Assessment/Plan Chief Complaint/Hosp Course Subjective: Feels better. Minimal pain. Tolerated liquids. No fever positive flatus. Objective: Vital signs stable Physical exam No pallor icterus adenopathy Regular no murmur rub gallop Clear Bowel sounds diminished mild tender nondistended no RR G No edema Assessment and plan 1. Acute/chronic cholecystitis with gangrene. Status post lap eriberto. Anticipate discharge tonight or tomorrow if okay with surgeon. Will prescribe Toradol for pain. Will ask surgeon for antibiotic prescription if indicated. 2. Chronic diabetes, probably diet-controlled stable follow-up Problems: Exam/Review of Systems Vital Signs Vitals Vital Signs Date Time Temp Pulse Resp B/P Pulse Ox O2 Delivery O2 Flow Rate FiO2 01/15/17 07:33 98.9 71 16 116/56 99 01/14/17 23:54 Room Air Intake and Output 01/14/17 01/14/17 01/15/17 15:00 23:00 07:00 Intake Total 1100 ml 605 ml 1580 ml Output Total 20 ml 400 ml 750 ml Balance 1080 ml 205 ml 830 ml Results Result Diagram: 01/15/17 0527 01/15/17 0530 Results 24 hrs Laboratory Tests Test 01/14/17 21:12 01/15/17 02:05 01/15/17 05:27 01/15/17 05:30 Bedside Glucose 195 157 White Blood Count 8.3 # Red Blood Count 3.53 L Hemoglobin 10.9 L Hematocrit 33.4 L Mean Corpuscular Volume 94.6 Mean Corpuscular Hemoglobin 30.9 Mean Corpuscular Hemoglobin Concent 32.6 Red Cell Distribution Width 13.3 Platelet Count 119 L Mean Platelet Volume 10.3 Neutrophils % 76.4 Lymphocytes % 14.9 L Monocytes % 8.1 Eosinophils % 0.1 Basophils % 0.1 Nucleated Red Blood Cells % 0.0 Neutrophils # 6.3 Lymphocytes # 1.2 Monocytes # 0.7 Eosinophils # 0.0 Basophils # 0.0 Nucleated Red Blood Cells # 0.0 Prothrombin Time 15.9 #H Prothrombin Time Ratio 1.2 INR International Normalized Ratio 1.26 Activated Partial Thromboplast Time 37.5 H Sodium Level 136 Potassium Level 4.2 Chloride Level 107 Carbon Dioxide Level 25 Anion Gap 8 Blood Urea Nitrogen 6 L Creatinine 0.43 L Glucose Level 155 Calcium Level 8.7 Phosphorus Level 1.6 L Magnesium Level 2.1 Total Bilirubin 0.5 Direct Bilirubin 0.00 Indirect Bilirubin 0.5 Aspartate Amino Transf (AST/SGOT) 82 H Alanine Aminotransferase (ALT/SGPT) 134 H Alkaline Phosphatase 98 B-Type Natriuretic Peptide 360 H Total Protein 5.5 L Albumin 2.8 L Globulin 2.70 Albumin/Globulin Ratio 1.03 Test 01/15/17 08:00 Bedside Glucose 145 Medications Medications Current Medications Ondansetron HCl (Zofran Inj) 4 mg Q6H PRN IV NAUSEA AND/OR VOMITING; Start 01/13/17 at 13:30 Acetaminophen (Tylenol Tab) 650 mg Q6H PRN PO PAIN LEVEL 1-3 OR FEVER; Start 01/13/17 at 13:30 Acetaminophen (Tylenol Supp) 650 mg Q6H PRN [place] PAIN LEVEL 1-3 OR FEVER; Start 01/13/17 at 13:30 Docusate Sodium (Colace) 100 mg Q12H PRN PO CONSTIPATION; Start 01/13/17 at 13: 30 Magnesium Hydroxide (Milk Of Mag) 30 ml DAILY PRN PO CONSTIPATION; Start at 13:30 Bisacodyl 10 mg 10 mg DAILY PRN [place] CONSTIPATION; Start 01/13/17 at 13:30 Potassium Chloride/Dextrose/ Sod Cl (D5-1/2ns + KCl 20 Meq) 1,000 ml @ 100 mls/ hr Q10H IV Last administered on 01/15/17 02:07; Admin Dose 100 MLS/HR; Start 01/14/17 at 13:35 Acetaminophen/ Hydrocodone Bitart ([place] (5/325)) 1 tab Q4H PRN PO PAIN LEVEL 4 -7; Start 01/14/17 at 14:00 Acetaminophen/ Hydrocodone Bitart ([place] (5/325)) 2 tab Q4H PRN PO PAIN LEVEL 7 -10; Start 01/14/17 at 14:00 Hydromorphone HCl (Dilaudid) 0.5 mg Q2H PRN IV PAIN Last administered on 07:45; Admin Dose 0.5 MG; Start 01/14/17 at 14:00 Hydromorphone HCl (Dilaudid) 1 mg Q2H PRN IV PAIN; Start 01/14/17 at 14:00 Docusate Sodium (Colace) 100 mg BID PRN PO CONSTIPATION; Start 01/14/17 at 14: 00 Bisacodyl (Dulcolax Supp) 10 mg BID PRN [place] CONSTIPATION; Start 01/14/17 at 14: 00 Sodium Biphosphate/ Sodium Phosphate (Fleet Enema) 133 ml BID PRN [place] CONSTIPATION; Start 01/14/17 at 14:00 Famotidine (Pepcid Iv) 20 mg DAILY IV Last administered on 01/15/17 08:17; Admin Dose 20 MG; Start 01/15/17 at 09:00 Enoxaparin Sodium (Lovenox) 40 mg DAILY SC Last administered on 01/15/17 08: 30; Admin Dose 40 MG; Start 01/15/17 at 09:00 Diagnostic Test (Pha) (Accu-Chek) 1 ea 02 XX ; Start 01/15/17 at 02:00 Miscellaneous Information 1 ea NOTE XX ; Start 01/14/17 at 21:30 Glucose (Glutose) 15 gm Q15M PRN PO DECREASED GLUCOSE; Start 01/14/17 at 21:30 Glucose (Glutose) 22.5 gm Q15M PRN PO DECREASED GLUCOSE; Start 01/14/17 at 21: 30 Dextrose (D50w Syringe) 25 ml Q15M PRN IV DECREASED GLUCOSE; Start 01/14/17 at 21:30 Dextrose (D50w Syringe) 50 ml Q15M PRN IV DECREASED GLUCOSE; Start 01/14/17 at 21:30 Glucagon (Glucagen) 1 mg Q15M PRN IM DECREASED GLUCOSE; Start 01/14/17 at 21:30 Glucose (Glutose) 15 gm Q15M PRN BUCCAL DECREASED GLUCOSE; Start 01/14/17 at 21 :30 PEPE PERRY MD Jan 15, 2017 11:10
--- NOTE | 2017-01-15 11:25 | PDOCDIS ---
Discharge Instructions DIAGNOSIS Discharge Diagnosis Acute and chronic cholecystitis CONDITION Patient Condition: Good HOME CARE INSTRUCTIONS: Special Diet: CARB CONTROL ACTIVITY: Activity Restrictions: Slowly Increase Activity Avoid heavy lifting FOLLOW UP/APPOINTMENTS Follow-up Plan Appointment primary 1 week Appointment Libby Ramon 1 week PEPE PERRY MD Jan 15, 2017 11:25
[2017-01-15] MEDS ORDERED: IBUP800T25 PO (11:27)
[2017-01-15] MEDS ORDERED: ACET325T40 PO (11:27)
--- NOTE | 2017-01-15 11:29 | DS ---
Date/Time of Note Date/Time of Note DATE: 01/15/17 TIME: 11:27 Discharge Summary Admission/Discharge Info Admit Date/Time Jan 13, 2017 at 12:50 Discharge Date/Time Discharge Diagnosis Acute and chronic cholecystitis Patient Condition: Good Consults Dr Libby Garber Procedures Laparoscopic cholecystectomy Hx of Present Illness This Is a 71-year-old female with no reported past medical history who came to [facility] due to reports of abdominal pain. According to the patient she had been having abdominal pain for 2 weeks duration. She reports it was intermittent 1 right upper abdominal quadrant. She did have some nausea vomiting associated with it. She reports that 3 days prior to this admission she started to have associated diarrhea and her pain progressively got worse. As such she went to [facility] for further evaluation. Upon examination she did have gallbladder ultrasound done that did show findings consistent with cholelithiasis as well as cholecystitis. On blood work she did have leukocytosis 12.2 on white blood cell count. BMP was otherwise unremarkable. Afebrile at present. We will evaluate her for the aformentiond issues. Hospital Course Admitted and treated for cholecystitis. Underwent lap eriberto. Stable and fit for discharge. Tylenol or Motrin for pain. No heavy lifting plan to follow-up with surgery 1 week. Instructed to take Tylenol Motrin with some liquid food. No need for antibiotics. 01/15: Subjective: Feels better. Minimal pain. Tolerated liquids. No fever positive flatus. Objective: Vital signs stable Physical exam No pallor icterus adenopathy Regular no murmur rub gallop Clear Bowel sounds diminished mild tender nondistended no RR G No edema Assessment and plan 1. Acute/chronic cholecystitis with gangrene. Status post lap eriberto. Anticipate discharge. Will prescribe Toradol for pain. 2. Chronic diabetes, probably diet-controlled stable follow-up Home Meds Active Scripts Ibuprofen* (Ibuprofen*) 800 Mg Tablet, 800 MG PO Q6H Y for MODERATE PAIN LEVEL 4 -6 for 10 Days, #24 TAB may take with some liquid/food. Prov:PEPE PERRY MD 01/15/17 Reported Medications Glipizide* (Glipizide*) 5 Mg Tablet, 5 MG PO DAILY, TAB 01/13/17 Discontinued Reported Medications Raloxifene Hcl* (Evista*) 60 Mg Tablet, 60 MG PO DAILY, TAB 01/13/17 Follow-up Plan Appointment primary 1 week Appointment Libby Ramon 1 week Primary Care Provider Care Physician No Primary Time spent on discharge: < 30 minutes Pending Labs Laboratory Tests Test 01/14/17 21:12 01/15/17 02:05 01/15/17 05:27 01/15/17 05:30 Bedside Glucose 195mg/dL (70-220) 157mg/dL (70-220) White Blood Count 8.310^3/ul (4.8-10.8) Red Blood Count 3.5310^6/ul (4.20-5.40) Hemoglobin 10.9g/dl (12.0-16.0) Hematocrit 33.4% (37.0-47.0) Mean Corpuscular Volume 94.6fl (82.0-101.0) Mean Corpuscular Hemoglobin 30.9pg (29.0-33.0) Mean Corpuscular Hemoglobin Concent 32.6g/dl (32.0-37.0) Red Cell Distribution Width 13.3% (11.5-14.5) Platelet Count 27054^3/UL (140-415) Mean Platelet Volume 10.3fl (7.4-10.4) Neutrophils % 76.4% (39.0-77.0) Lymphocytes % 14.9% (15.0-51.0) Monocytes % 8.1% (0.0-11.0) Eosinophils % 0.1% (0.0-7.0) Basophils % 0.1% (0.0-2.0) Nucleated Red Blood Cells % 0.0/100WBC (0.0-0.0) Neutrophils # 6.310^3/ul (1.6-7.5) Lymphocytes # 1.210^3/ul (0.8-2.9) Monocytes # 0.710^3/ul (0.3-0.9) Eosinophils # 0.010^3/ul (0.0-0.5) Basophils # 0.010^3/ul (0.0-0.1) Nucleated Red Blood Cells # 0.010^3/ul (0.0-0.0) Prothrombin Time 15.9Sec (12.2-14.2) Prothrombin Time Ratio 1.2 INR International Normalized Ratio 1.26 Activated Partial Thromboplast Time 37.5Sec (25.0-35.0) Sodium Level 136mmol/L (135-144) Potassium Level 4.2mmol/L (3.5-5.1) Chloride Level 107mmol/L (97-110) Carbon Dioxide Level 25mmol/L (21-31) Anion Gap 8 (8-16) Blood Urea Nitrogen 6mg/dl (7-20) Creatinine 0.43mg/dl (0.44-1.00) Glucose Level 155mg/dl (70-220) Calcium Level 8.7mg/dl (8.4-10.2) Phosphorus Level 1.6mg/dl (2.5-4.9) Magnesium Level 2.1mg/dl (1.7-2.5) Total Bilirubin 0.5mg/dl (0.2-1.3) Direct Bilirubin 0.00mg/dl (0.00-0.20) Indirect Bilirubin 0.5mg/dl (0-1.1) Aspartate Amino Transf (AST/SGOT) 82IU/L (15-46) Alanine Aminotransferase (ALT/SGPT) 134IU/L (13-69) Alkaline Phosphatase 98IU/L (42-121) B-Type Natriuretic Peptide 360PG/ML (0-125) Total Protein 5.5g/dl (6.1-8.1) Albumin 2.8g/dl (3.3-4.9) Globulin 2.70g/dl (1.3-3.2) Albumin/Globulin Ratio 1.03 Test 01/15/17 08:00 Bedside Glucose 145mg/dL (70-220) PEPE PERRY MD Jan 15, 2017 11:29
[2017-01-15] MEDS ORDERED: IBUPROFEN 800 MG TAB PO PRN (11:30)
--- NOTE | 2017-01-15 11:46 | PN ---
Date/Time of Note Date/Time of Note DATE: 01/15/17 TIME: 11:46 Assessment/Plan Lines/Catheters IV Catheter Type (from [facility]): Peripheral IV Aguirre in Place (from [facility]): No Assessment/Plan Assessment/Plan [facility] Progress Note Date of Service: 01/15/2017 Location of Service: [facility] fourth floor Today's Assessment & Plan: Overall stable and doing well.. Abdomen remains benign. No indications of major postoperative complications or wound problems. No indication for acute surgical intervention. Okay to discharge from my standpoint With above assessment, I've recommended the following for today: 1. Discharge home 2. Please include the following in the patient's discharge instructions: "Please call [phone] if any of fever, nausea, vomiting, discharge from wound, wound redness, increase or sudden pain, blood in stool or vomit, or any other unusual signs or symptoms. Also, please call the same number in a few days to schedule an appointment for your follow up visit. Patient may remove dressings tomorrow. Showers OK starting tomorrow. No swimming , hot tub or bath for 2 weeks. No lifting more than 25 lbs for 8 weeks." Thank you again for your great care of this very pleasant patient and wonderful family. If there are any questions, please feel free to call me at [phone]. Nature of presenting problem: High severity Please note that, given the limited number of diagnoses or management options, the moderate amount and/or complexity of data needed to be reviewed, and high risk of complications and/or morbidity or mortality, this qualifies as moderate complexity type of decision-making. Disclaimers: 1. Inadvertent spelling and grammatical errors are likely due to electronic health record (EHR)/dictation software used and do not reflect on the quality of delivered patient care. 2. The electronic timestamp recorded on this note does not necessarily reflect the actual date and time of the visit or the service. 3. Portions of this note may have been created through electronic templates and computer algorithms that might bring in information either from the system or from other physicians and providers. Please note that such information may or may not contain errors, the occurrence of which are outside of my control. In general (but not always) this happens either in the beginning or at the end of the note. The portion of the note that I have created are generally done in 1 continuous block of text, flanked at the beginning and at the end by " ", and entered into one field in the EHR. 4. There may be other unanticipated errors in the note that are outside of my control. I can only attest to the portions of the note that I have created. Updated Clinical Summary: A very-pleasant 71-year-old lady seemingly otherwise healthy who presented to the emergency department to [facility] with abdominal pain which could be due to symptomatic biliary colic. Comorbidities: 1. 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 Subjective: No major events or complaints; no abd pain and under control with medications; no n/v/d; no sob or cp; + bowel activity; + activity Objective: Vitals: See below Exam: GENERAL: On exam, the patient was laying in bed and appeared to be comfortable and in no acute distress. ABDOMEN: Soft, nontender and nondistended. Incision dressings are clean, dry and intact without any evidence of obvious underlying erythema, edema, discharge , or hernia. There are no peritoneal signs or guarding. SKIN: Skin appears to be pink and feels warm to touch. NEUROLOGIC: Patient is awake, alert, and follows commands appropriately. Exam/Review of Systems Vital Signs Vitals Vital Signs Date Time Temp Pulse Resp B/P Pulse Ox O2 Delivery O2 Flow Rate FiO2 01/15/17 07:33 98.9 71 16 116/56 99 01/14/17 23:54 Room Air Intake and Output 01/14/17 01/14/17 01/15/17 15:00 23:00 07:00 Intake Total 1100 ml 605 ml 1580 ml Output Total 20 ml 400 ml 750 ml Balance 1080 ml 205 ml 830 ml Results Result Diagram: 01/15/17 0527 01/15/17 0530 ALEXIS HINES M.D. Jan 15, 2017 11:46
[2017-01-15 14:13] VITALS: BP 132/60; PULSE 68; RESP 19
== END 2017-01-15 14:40 | disposition home or self-care (01) | DRG 419 ==
LOC: E/R 09:07 → MS2 12:50
PROVIDERS: ADMIT Hospitalist; ATTEND Hospitalist
PROC: 0FT44ZZ Resection of Gallbladder, Percutaneous Endoscopic Approach (ICD-10-PCS; principal; 2017-01-14 10:30)
DX: K81.2 Acute cholecystitis with chronic cholecystitis (principal); E11.9 Type 2 diabetes mellitus without complications; D72.829 Elevated white blood cell count, unspecified
CPT/HCPCS: 36415; 71010; 76705; 80053; 80061; 81001; 82962; 83036; 83690; 83735; 83880; 84100; 84436; 84443; 84479; 84484; 85025; 85610; 85730; 87086; 88304; 90686; 93005; 96374; C9113; J0690; J1100; J1170; J1650; J1815; J2250; J2405; J2710; J3010; J3480; J7030

== ENCOUNTER 2017-02-03 13:48 | Outpatient (CLI) | payer OTHER ==
[~2017-02-03] VITALS: Ht 162.6 cm; Wt 59.1 kg
[2017-02-03 13:48] VITALS: BP 167/72; PULSE 82; RESP 18; Ht 162.6 cm; Wt 59.1 kg
[~2017-02-03 13:48] MED LIST: ACET325T40 PO; GLIP5TAB13 PO; IBUP800T25 PO
--- NOTE | 2017-02-03 14:43 | PN ---
Date/Time of Note Date/Time of Note DATE: 02/03/17 TIME: 14:04 Assessment/Plan Assessment/Plan Assessment/Plan [facility] Progress Note Date of Service: 02/03/2017 Location of Service: [facility] fourth floor Today's Assessment & Plan: Overall stable and doing well. Abdomen remains benign. No indications of major postoperative complications or wound problems. With above assessment, I've recommended the following for today: 1. F/u with pcp 2. F/u with us prn Patient may remove dressings tomorrow. Showers OK starting tomorrow. No swimming , hot tub or bath for 2 weeks. No lifting more than 25 lbs for 8 weeks." Thank you again for your great care of this very pleasant patient and wonderful family. If there are any questions, please feel free to call me at [phone]. Nature of presenting problem: High severity Please note that, given the limited number of diagnoses or management options, the moderate amount and/or complexity of data needed to be reviewed, and high risk of complications and/or morbidity or mortality, this qualifies as moderate complexity type of decision-making. Disclaimers: 1. Inadvertent spelling and grammatical errors are likely due to electronic health record (EHR)/dictation software used and do not reflect on the quality of delivered patient care. 2. The electronic timestamp recorded on this note does not necessarily reflect the actual date and time of the visit or the service. 3. Portions of this note may have been created through electronic templates and computer algorithms that might bring in information either from the system or from other physicians and providers. Please note that such information may or may not contain errors, the occurrence of which are outside of my control. In general (but not always) this happens either in the beginning or at the end of the note. The portion of the note that I have created are generally done in 1 continuous block of text, flanked at the beginning and at the end by " ", and entered into one field in the EHR. 4. There may be other unanticipated errors in the note that are outside of my control. I can only attest to the portions of the note that I have created. Updated Clinical Summary: A very-pleasant 71-year-old lady seemingly otherwise healthy who presented to the emergency department to [facility] with abdominal pain which could be due to symptomatic biliary colic. S/p an otherwise uncomplicated but somewhat challenging laparoscopic cholecystectomy at [facility] on 01/14/17 with findings of severe acute on chronic cholecystitis with gallbladder gangrene. Comorbidities: 1. Severe acute on chronic cholecystitis with gangrene; s/p an otherwise uncomplicated but somewhat challenging laparoscopic cholecystectomy at [facility] on with findings of severe acute on chronic cholecystitis with gallbladder gangrene. Subjective: No major events or complaints since d/c; no abd pain; no n/v/d; no sob or cp; + bowel activity; + activity Objective: Vitals: See below Exam: GENERAL: On exam, the patient was sitting in a chair and appeared to be comfortable and in no acute distress. ABDOMEN: Soft, nontender and nondistended. Incisions are clean, dry and intact without any evidence of obvious erythema, edema, discharge, or hernia. There are no peritoneal signs or guarding. SKIN: Skin appears to be pink and feels warm to touch. NEUROLOGIC: Patient is awake, alert, and follows commands appropriately. Exam/Review of Systems Vital Signs Vitals Vital Signs Date Time Temp Pulse Resp B/P Pulse Ox O2 Delivery O2 Flow Rate FiO2 02/03/17 13:48 97.9 82 18 167/72 100 Room Air ALEXIS HINES M.D. Feb 03, 2017 14:43
== END 2017-02-03 17:00 | disposition home or self-care (01) ==
LOC: HPC 13:48
PROVIDERS: ATTEND Transplant Surgery
DX: K81.1 Chronic cholecystitis (principal)
CPT/HCPCS: G0463

== ENCOUNTER 2017-09-10 11:41 | Emergency (ER) | END 2017-09-10 14:28 | disposition home or self-care (01) ==